=== PATIENT | female | born 1960 | race Caucasian/White ===

== ENCOUNTER 2024-08-15 10:42 | Outpatient (OUT) | payer BC, SELFPAY ==
--- NOTE | 2024-08-15 11:10 | MM_ITS ---
Patient Name: FOREST AGUILAR MR#: [id number] : 1960 Exam Date: 08/15/2024 Ordering Doctor: SAJAN CARIAS . RADIOLOGY REPORT PROCEDURE: MM TOMOSYNTHESIS SCREENING BI COMPARISON: None. INDICATIONS: Screening Calculator Name NCI Breast Cancer Risk Assessment Tool 5 Year Breast Cancer Risk 1.60% Lifetime Breast Cancer Risk 6.80% Personal Breast Cancer No Personal Ovarian Cancer No Treatments None Family Cancers Grandmother-maternal with breast cancer at age ~65. LOCATION: [facility] BREAST COMPOSITION: There are scattered areas of fibroglandular density. FINDINGS: DIAGNOSTIC CATEGORY 1--NEGATIVE. NO CHANGE FROM COMPARISON ASSESSMENT. Scattered benign-appearing calcifications are present. Scattered benign-appearing lymph nodes are present. RIGHT BREAST: No significant suspicious finding. LEFT BREAST: No significant suspicious finding. RECOMMENDATIONS: ROUTINE MAMMOGRAM AND CLINICAL EVALUATION IN 12 MONTHS. PLEASE NOTE: A NORMAL MAMMOGRAM DOES NOT EXCLUDE THE POSSIBILITY OF BREAST CANCER. A CLINICALLY SUSPICIOUS PALPABLE LUMP SHOULD BE BIOPSIED. Dictated by: Edd Pennington MD on 08/15/2024 at 12:44 Approved by: Edd Pennington MD on 08/15/2024 at 12:45
== END 2024-08-15 10:43 | disposition home or self-care (01) ==
LOC: MAMMO 10:42
PROVIDERS: Family Provider Emergency Medicine Hospice and Palliative Medicine; PCP Nurse Practitioner Family; Visit Provider Nurse Practitioner
DX: Z12.31 Encounter for screening mammogram for malignant neoplasm of breast (principal); Z80.3 Family history of malignant neoplasm of breast
CPT/HCPCS: 77063; 77067